=== PATIENT | male | born 1960 | race African-American/Black ===

== ENCOUNTER 2017-05-02 14:49 | Emergency (ER) | payer OTHER ==
[~2017-05-02 14:49] MED LIST: DARVOCET-N 1001 TAB PO; NO MEDICATIONS; TYLENOL #3 PO
== END 2017-05-02 15:29 | disposition left against medical advice (07) ==
LOC: CED 14:49 → CFTX 14:49 → CED 15:18 → CFTX 15:18 → CED 15:29
DX: Z53.21 Procedure and treatment not carried out due to patient leaving prior to being seen by health care provider (principal)